=== PATIENT | male | born 1955 | race Two or more races ===

== ENCOUNTER 2017-07-19 21:54 | Emergency (ER) | payer MEDICAID, OTHER ==
[~2017-07-19] VITALS: Ht 175.3 cm; Wt 95.3 kg
--- NOTE | 2017-07-19 22:05 | NUR ---
CALLED PT NAME [id number]. NO ONE IN WAITING ROOM AT THIS TIME.
--- NOTE | 2017-07-19 22:28 | NUR ---
ROBBIE BOYD AT BEDSIDE FOR EVAL.
--- NOTE | 2017-07-19 23:01 | NUR ---
MOLD CLAMPER AT BEDSIDE FOR BLOOD DRAW.
[2017-07-19 23:12] LABS: BASOPHILS # (AUTO) 0.1 /CMM (0.0-0.2); BASOPHILS % (AUTO) 1.1 % (0.0-2.0); EOSINOPHILS # (AUTO) 1.1 /CMM (0.0-0.7); EOSINOPHILS % (AUTO) 10.5 % (0.0-6.0); HEMATOCRIT 38 % (39-51); LYMPHOCYTES # (AUTO) 3.2 /CMM (0.8-4.8); LYMPHOCYTES % (AUTO) 30.3 % (20.0-44.0); MEAN CORPUSCULAR HEMOGLOBIN 30 PG (26.0-33.0); MEAN CORPUSCULAR HGB CONC 35 g/dl (31.0-36.0); MEAN CORPUSCULAR VOLUME 86 fL (80-96); MONOCYTES # (AUTO) 0.6 /CMM (0.1-1.30); MONOCYTES % (AUTO) 5.5 % (2.0-12.0); NEUTROPHILS # (AUTO) 5.6 /CMM (1.8-8.9); NEUTROPHILS % (AUTO) 52.6 % (43.0-81.0); PLATELET COUNT (AUTO) 242 /CMM (150-450); RDW COEFFICIENT OF VARIATION 13.4 (11.5-15.0); RED BLOOD CELL COUNT(AUTO) 4.34 MIL/uL (4.5-6.0); WHITE BLOOD COUNT (AUTO) 10.7 K/uL (4.3-11.0)
[2017-07-19 23:25] LABS: CREATININE 0.9 mg/dL (0.6-1.3)
[2017-07-19 23:31] LABS: ALBUMIN 3.8 g/dL (3.4-5.0); BILIRUBIN,DIRECT 0.1 mg/dL (0.0-0.2); BILIRUBIN,TOTAL 0.3 mg/dL (0.2-1.0); TOTAL PROTEIN, SERUM 7.3 g/dL (6.4-8.2)
--- NOTE | 2017-07-19 23:43 | NUR ---
Patient discharged to home in stable condition. Written and verbal after care instructions given. Patient verbalizes understanding of instruction.
[2017-07-19 23:45] VITALS: BP 132/84
== END 2017-07-19 23:46 | disposition home or self-care (01) ==
LOC: ER 22:03
DX: E11.9 Type 2 diabetes mellitus without complications (principal); I10 Essential (primary) hypertension
CPT/HCPCS: 36415; 80048-TC; 80076-TC; 82962-TC; 85025-TC; A4606; Z7610

== ENCOUNTER 2018-11-24 12:45 | Emergency (ER) | payer OTHER ==
[~2018-11-24] VITALS: Ht 177.8 cm; Wt 103.4 kg
[~2018-11-24 12:45] MED LIST: ASPI-1152 PO; ENAL10TA PO; GLIP10TA11 PO; METF-442 PO; OMEP20CA10 PO; QUET25TA PO; SIMV40TA5 PO; SITA100T PO; TRAZ-214 PO
[2018-11-24 12:52] VITALS: BP 141/79
== END 2018-11-24 13:16 | disposition home or self-care (01) ==
LOC: ER 12:46
DX: H66.93 Otitis media, unspecified, bilateral (principal); I10 Essential (primary) hypertension; E11.9 Type 2 diabetes mellitus without complications; F17.200 Nicotine dependence, unspecified, uncomplicated; Z79.82 Long term (current) use of aspirin

== ENCOUNTER 2018-12-16 23:25 | Emergency (ER) | payer MEDICAID, OTHER ==
[~2018-12-16] VITALS: Ht 177.8 cm; Wt 90.7 kg
[2018-12-16 23:47] VITALS: BP 112/79
== END 2018-12-17 00:25 | disposition home or self-care (01) ==
LOC: ER 23:29
DX: H93.13 Tinnitus, bilateral (principal); E11.9 Type 2 diabetes mellitus without complications; I10 Essential (primary) hypertension; F17.200 Nicotine dependence, unspecified, uncomplicated; Z79.84 Long term (current) use of oral hypoglycemic drugs; Z79.82 Long term (current) use of aspirin; Z79.899 Other long term (current) drug therapy
CPT/HCPCS: Z7502

== ENCOUNTER 2019-04-30 19:23 | Emergency (ER) | payer OTHER ==
[~2019-04-30] VITALS: Ht 175.3 cm; Wt 104.3 kg
[~2019-04-30 19:23] MED LIST changes: -OMEP20CA10 PO; +OMEP20CA11 PO; +SIMV-49 PO; -SIMV40TA5 PO
[2019-04-30 19:25] VITALS: BP 141/92
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
== END 2019-04-30 22:25 | disposition home or self-care (01) ==
LOC: ER 19:32
DX: B34.9 Viral infection, unspecified (principal); I10 Essential (primary) hypertension; E78.5 Hyperlipidemia, unspecified; E11.9 Type 2 diabetes mellitus without complications; F17.200 Nicotine dependence, unspecified, uncomplicated; Z79.84 Long term (current) use of oral hypoglycemic drugs; Z79.899 Other long term (current) drug therapy
CPT/HCPCS: 86403-TC; 87070-TC

== ENCOUNTER 2019-11-28 13:22 | Emergency (ER) | payer OTHER ==
[~2019-11-28] VITALS: Ht 175.3 cm; Wt 104.3 kg
[~2019-11-28 13:22] MED LIST changes: -ASPI-1152 PO; +ASPI-1420 PO; -ENAL10TA PO; +ENAL10TA39 PO; -OMEP20CA11 PO; +OMEP20CA15 PO; -TRAZ-214 PO; +TRAZ-257 PO
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
--- NOTE | 2019-11-28 14:00 | NUR ---
wheeled patient to ct
--- NOTE | 2019-11-28 14:06 | NUR ---
patient came back from ct
[2019-11-28 14:51] VITALS: BP 158/108
--- NOTE | 2019-11-28 14:52 | NUR ---
Patient discharged to home in stable condition. Written and verbal after care instructions given. Patient verbalizes understanding of instruction.
== END 2019-11-28 14:52 | disposition home or self-care (01) ==
LOC: ER 13:29
DX: S02.31XA Fracture of orbital floor, right side, initial encounter for closed fracture (principal); I10 Essential (primary) hypertension; E78.5 Hyperlipidemia, unspecified; E11.9 Type 2 diabetes mellitus without complications; F17.200 Nicotine dependence, unspecified, uncomplicated; Z79.899 Other long term (current) drug therapy; Z79.84 Long term (current) use of oral hypoglycemic drugs; Z79.82 Long term (current) use of aspirin; Y04.0XXA Assault by unarmed brawl or fight, initial encounter; Y93.89 Activity, other specified; Y92.89 Other specified places as the place of occurrence of the external cause; Y99.8 Other external cause status
CPT/HCPCS: 70450-TC

== ENCOUNTER 2019-12-02 09:33 | Emergency (ER) | payer OTHER ==
[~2019-12-02] VITALS: Ht 175.3 cm; Wt 104.3 kg
[~2019-12-02 09:33] MED LIST changes: +ASPI-1152 PO; -ASPI-1420 PO; +ENAL10TA PO; -ENAL10TA39 PO
[2019-12-02 09:45] VITALS: BP 151/84
--- NOTE | 2019-12-02 10:16 | NUR ---
Patient discharged to home in stable condition. Written and verbal after care instructions given. Patient verbalizes understanding of instruction.
== END 2019-12-02 10:16 | disposition home or self-care (01) ==
LOC: ER 09:33
DX: B99.8 Other infectious disease (principal); H10.89 Other conjunctivitis; I10 Essential (primary) hypertension; E78.5 Hyperlipidemia, unspecified; E11.9 Type 2 diabetes mellitus without complications; Z79.899 Other long term (current) drug therapy; Z79.82 Long term (current) use of aspirin

== ENCOUNTER 2019-12-14 05:12 | Emergency (ER) | payer OTHER ==
[~2019-12-14] VITALS: Ht 175.3 cm; Wt 104.3 kg
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
--- NOTE | 2019-12-14 05:55 | NUR ---
XRAY AT BEDSIDE
--- NOTE | 2019-12-14 08:15 | NUR ---
Patient discharged to home in stable condition. Written and verbal after care instructions given. Patient verbalizes understanding of instruction.
[2019-12-14 08:17] VITALS: BP 121/81
== END 2019-12-14 08:17 | disposition home or self-care (01) ==
LOC: ER 05:13
DX: M25.531 Pain in right wrist (principal); I10 Essential (primary) hypertension; E78.5 Hyperlipidemia, unspecified; E11.9 Type 2 diabetes mellitus without complications; F17.200 Nicotine dependence, unspecified, uncomplicated; Z79.899 Other long term (current) drug therapy; Z79.82 Long term (current) use of aspirin; W19.XXXA Unspecified fall, initial encounter; Y93.89 Activity, other specified; Y92.89 Other specified places as the place of occurrence of the external cause; Y99.8 Other external cause status
CPT/HCPCS: 73110; 73130-TC

== ENCOUNTER 2020-05-18 19:31 | Emergency (ER) | payer OTHER ==
[~2020-05-18] VITALS: Ht 175.3 cm; Wt 104.3 kg
[~2020-05-18 19:31] MED LIST changes: -ASPI-1152 PO; +ASPI-1420 PO; -ENAL10TA PO; +ENAL10TA39 PO
--- NOTE | 2020-05-18 19:45 | NUR ---
PT CAME TO THE ER C/O ABD PAIN X 15 DAYS. -VOMITING +NAUSEA. PT AAOX4, VSS, RESPIRATIONS EVEN AND UNLABORED ON RA W/ NAD NOTED. PT CONNECTED TO THE PRECINCT I [employer]ICE [employer]GEANT AND POX.
--- NOTE | 2020-05-18 19:46 | NUR ---
URINE COLLECTED AND SENT TO LAB
--- NOTE | 2020-05-18 19:58 | NUR ---
PT AAOX4. AMBULATORY WITH STEADY GAIT. BIBSELF C/O GEN ABD PAIN X15 DAYS BUT TODAY BECAME WORSE. PT PLACED IN BED 9 ON MONITOR AND PULSE OX. VSS. UPON ASSESSMENT RUQ PAIN UPON PALPATION. LINE ESTABLISHED LAC 18G, BLOOD COLLECTED, AND SENT TO LAB. AT BEDSIDE FOR EVAL. AWAITING OTHER ORDERS.
[2020-05-18] MEDS ORDERED: MORPHINE SULFATE INJ 2 MG/ML DISP.SYRIN IV ONE (20:00)
[2020-05-18] MEDS ORDERED: ONDANSETRON HCL/PF 4 MG/2 ML VIAL IVP ONE (20:00)
[2020-05-18] MEDS ORDERED: KETOROLAC TROMETHAMINE INJ 30 MG/ML VIAL IV ONE (20:00)
[2020-05-18] MEDS ORDERED: MORPHINE SULFATE INJ 2 MG/ML DISP.SYRIN ONE (20:04)
[2020-05-18] MEDS ORDERED: ONDANSETRON HCL/PF 4 MG/2 ML VIAL ONE (20:04)
[2020-05-18] MEDS ORDERED: KETOROLAC TROMETHAMINE 15 MG/ML VIAL ONE (20:04)
--- NOTE | 2020-05-18 20:15 | NUR ---
US AT BEDSIDE.
[2020-05-18 20:18] LABS: CALCIUM, SERUM 9.4 mg/dL (8.5-10.1); CREATININE 0.8 mg/dL (0.6-1.3); POTASSIUM 4.1 mmol/L (3.5-5.1)
--- NOTE | 2020-05-18 20:18 | NUR ---
BROUGHT TO CT
[2020-05-18 20:20] LABS: BASOPHILS # (AUTO) 0.2 /CMM (0.0-0.2); BASOPHILS % (AUTO) 1.5 % (0.0-2.0); EOSINOPHILS % (AUTO) 9.5 % (0.0-6.0); HEMATOCRIT 44 % (39-51); HEMOGLOBIN 14.6 g/dL (13.5-17.5); LYMPHOCYTES # (AUTO) 3.2 /CMM (0.8-4.8); LYMPHOCYTES % (AUTO) 31.4 % (20.0-44.0); MEAN CORPUSCULAR HGB CONC 33 g/dl (31.0-36.0); MEAN CORPUSCULAR VOLUME 88 fL (80-96); MONOCYTES # (AUTO) 0.7 /CMM (0.1-1.30); MONOCYTES % (AUTO) 6.7 % (2.0-12.0); NEUTROPHILS # (AUTO) 5.2 /CMM (1.8-8.9); NEUTROPHILS % (AUTO) 50.9 % (43.0-81.0); PLATELET COUNT (AUTO) 265 /CMM (150-450); RED BLOOD CELL COUNT(AUTO) 4.97 MIL/uL (4.5-6.0); WHITE BLOOD COUNT (AUTO) 10.2 K/uL (4.3-11.0)
[2020-05-18 20:26] LABS: BILIRUBIN,URINE Negative (NEGATIVE); BLOOD, URINE Trace-lysed Ery/uL (NEGATIVE); COLOR,URINE Yellow (YELLOW); LEUKOCYTE ESTERASE ,URINE Negative (NEGATIVE); NITRITE, URINE Negative (NEGATIVE); PH,URINE 6.5 (5.0-8.0); PROTEIN,URINE Negative (NEGATIVE); UGLUCOSE Negative (NEGATIVE); UROBILINOGEN,URINE 0.2 EU/dL (0.2)
[2020-05-18 20:26] LABS: BILIRUBIN,DIRECT 0.1 mg/dL (0.0-0.2); BILIRUBIN,TOTAL 0.3 mg/dL (0.2-1.0)
--- NOTE | 2020-05-18 20:45 | NUR ---
SPOKE TO PT, DENIES PAIN. VSS.
[2020-05-18 20:53] LABS: BACTERIA,URINE None seen /HPF (None Seen); SQUAMOUS EPITHELIAL CELL,UR Few /HPF (None Seen); WBC,URINE 0-2 /HPF (0-3)
[2020-05-18 21:10] VITALS: BP 127/72
--- NOTE | 2020-05-18 21:10 | NUR ---
IV removed. Catheter intact and site benign. Pressure and 4x4 applied to site. No bleeding noted.
--- NOTE | 2020-05-18 21:10 | NUR ---
Patient discharged to home in stable condition. Written and verbal after care instructions given. Patient verbalizes understanding of instruction and RX. Pt ambulated with steady gait. vss. Denies pain.
== END 2020-05-18 21:11 | disposition home or self-care (01) ==
LOC: ER 19:35
DX: R10.84 Generalized abdominal pain (principal); I10 Essential (primary) hypertension; E11.9 Type 2 diabetes mellitus without complications; E78.5 Hyperlipidemia, unspecified; Z79.82 Long term (current) use of aspirin; Z79.899 Other long term (current) drug therapy
CPT/HCPCS: 36415; 74176; 76705; 80048; 80076; 81001; 82962; 83690; 85025; 96374; 96375; 99285; J1885; J2270; J2405; 81000-TC

== ENCOUNTER 2020-10-21 14:36 | Emergency (ER) | payer OTHER ==
[~2020-10-21] VITALS: Ht 175.3 cm; Wt 101.6 kg
--- NOTE | 2020-10-21 14:36 | NUR ---
PT BIB SELF C/O ABDOMINAL PAIN FOR 2 WEEKS AND GEN WEAKNESS. PT IS AAOX4, NOT IN RESPIRATORY DISTRESS, HOOKED TO DRAPERY HAND, KEPT RESTED AND COMFORTABLE. WILL CONTINUE TO MONITOR.
--- NOTE | 2020-10-21 14:53 | NUR ---
IV LINE ESTABLISHED BLOOD DRAWN AND SENT TO LAB.
--- NOTE | 2020-10-21 14:57 | NUR ---
PT SEEN AND EXAMINED BY .
[2020-10-21 15:10] LABS: BASOPHILS # (AUTO) 0.1 /CMM (0.0-0.2); BASOPHILS % (AUTO) 1.3 % (0.0-2.0); EOSINOPHILS % (AUTO) 9.9 % (0.0-6.0); HEMATOCRIT 43 % (39-51); HEMOGLOBIN 14.6 g/dL (13.5-17.5); LYMPHOCYTES # (AUTO) 2.2 /CMM (0.8-4.8); LYMPHOCYTES % (AUTO) 23.7 % (20.0-44.0); MEAN CORPUSCULAR HGB CONC 34 g/dl (31.0-36.0); MEAN CORPUSCULAR VOLUME 88 fL (80-96); MONOCYTES # (AUTO) 0.5 /CMM (0.1-1.30); MONOCYTES % (AUTO) 5.5 % (2.0-12.0); NEUTROPHILS # (AUTO) 5.5 /CMM (1.8-8.9); NEUTROPHILS % (AUTO) 59.6 % (43.0-81.0); PLATELET COUNT (AUTO) 225 /CMM (150-450); RED BLOOD CELL COUNT(AUTO) 4.88 MIL/uL (4.5-6.0); WHITE BLOOD COUNT (AUTO) 9.3 K/uL (4.3-11.0)
[2020-10-21 15:18] LABS: CALCIUM, SERUM 9.1 mg/dL (8.5-10.1); CARBON DIOXIDE 29 mmol/L (21-32); CHLORIDE 106 mmol/L (98-107); GLUCOSE 230 mg/dL (74-106); POTASSIUM 4.3 mmol/L (3.5-5.1); SODIUM SERUM 142 mmol/L (136-145); UREA NITROGEN, BLOOD 12 mg/dL (7-18)
[2020-10-21 15:23] LABS: ALANINE AMINOTRANSFERASE 24 U/L (12-78); ALBUMIN 3.9 g/dL (3.4-5.0); ALKALINE PHOSPHATASE 89 U/L (46-116); ASPARTATE AMINOTRANSFERASE 14 U/L (15-37); BILIRUBIN,DIRECT 0.1 mg/dL (0.0-0.2); BILIRUBIN,TOTAL 0.2 mg/dL (0.2-1.0); LIPASE 170 U/L (73-393); TOTAL PROTEIN, SERUM 7.6 g/dL (6.4-8.2)
--- NOTE | 2020-10-21 16:16 | NUR ---
IV removed. Catheter intact and site benign. Pressure and 4x4 applied to site. No bleeding noted. Patient discharged to home in stable condition. Written and verbal after care instructions given. Patient verbalizes understanding of instruction.
[2020-10-21 16:17] VITALS: BP 144/88
== END 2020-10-21 16:17 | disposition home or self-care (01) ==
LOC: ER 14:50
DX: R10.31 Right lower quadrant pain (principal); R42 Dizziness and giddiness; E11.9 Type 2 diabetes mellitus without complications; I10 Essential (primary) hypertension; E78.5 Hyperlipidemia, unspecified; Z79.84 Long term (current) use of oral hypoglycemic drugs; Z79.899 Other long term (current) drug therapy
CPT/HCPCS: 36415; 71045-TC; 80048-TC; 80076-TC; 83690-TC; 84484-TC; 85025-TC

== ENCOUNTER 2023-04-24 17:15 | Emergency (ER) | payer OTHER ==
[~2023-04-24] VITALS: Ht 182.9 cm; Wt 100.8 kg
[~2023-04-24 17:15] MED LIST changes: +DICY10CA37 PO; +ONDA4TAB5 PO
[2023-04-24] MEDS ORDERED: IV NS 0.9% 1,000 ML BAG IV ONE (18:00)
[2023-04-24 18:18] LABS: BASOPHILS # (AUTO) 0.1 K/uL (0.0-0.2); BASOPHILS % (AUTO) 0.9 % (0.0-2.0); EOSINOPHILS # (AUTO) 0.2 K/uL (0.0-0.7); EOSINOPHILS % (AUTO) 1.7 % (0.0-6.0); HEMATOCRIT 36 % (39-51); LYMPHOCYTES # (AUTO) 2.2 K/uL (0.8-4.8); LYMPHOCYTES % (AUTO) 17.3 % (20.0-44.0); MEAN CORPUSCULAR HEMOGLOBIN 29 PG (26.0-33.0); MEAN CORPUSCULAR HGB CONC 33 g/dl (31.0-36.0); MEAN CORPUSCULAR VOLUME 87 fL (80-96); MONOCYTES # (AUTO) 0.8 K/uL (0.1-1.30); MONOCYTES % (AUTO) 6.1 % (2.0-12.0); NEUTROPHILS # (AUTO) 9.4 K/uL (1.8-8.9); PLATELET COUNT (AUTO) 261 K/uL (150-450); RED BLOOD CELL COUNT(AUTO) 4.17 MIL/uL (4.5-6.0); RED CELL DISTRIBUTION WIDTH 14.4 % (11.5-15.0); WHITE BLOOD COUNT (AUTO) 12.8 K/uL (4.3-11.0)
[2023-04-24 19:09] LABS: CALCIUM, SERUM 8.6 mg/dL (8.5-10.1); CREATININE 0.8 mg/dL (0.6-1.3); POTASSIUM 4.1 mmol/L (3.5-5.1)
[2023-04-24 19:14] LABS: ALBUMIN 3.2 g/dL (3.4-5.0); BILIRUBIN,DIRECT 0.1 mg/dL (0.0-0.2); BILIRUBIN,TOTAL 0.2 mg/dL (0.2-1.0); TOTAL PROTEIN, SERUM 6.9 g/dL (6.4-8.2)
[2023-04-24] MEDS ORDERED: AMOX-430 PO (19:44)
[2023-04-24] MEDS ORDERED: AMOX/CLAVULANATE 875 MG TABLET ONE (19:48)
[2023-04-24 19:55] VITALS: BP 124/78; TEMP 98.1; O2SAT 99
[2023-04-24] MEDS ORDERED: AMOX/CLAVULANATE 875 MG TABLET PO ONE (20:00)
== END 2023-04-24 19:56 | disposition home or self-care (01) ==
LOC: ER 17:18
DX: K52.9 Noninfective gastroenteritis and colitis, unspecified (principal); E11.9 Type 2 diabetes mellitus without complications; F17.200 Nicotine dependence, unspecified, uncomplicated; Z79.82 Long term (current) use of aspirin; Z79.899 Other long term (current) drug therapy
CPT/HCPCS: 99284; 74176; 96360; 85025; 80048; 83690; 80076; 36415; J7030

== ENCOUNTER 2023-07-28 12:55 | Emergency (ER) | payer MEDICARE, OTHER ==
[~2023-07-28] VITALS: Ht 180.3 cm; Wt 99.8 kg
[~2023-07-28 12:55] MED LIST changes: +AMOX-430 PO
[2023-07-28] MEDS ORDERED: MECLIZINE HCL 12.5 MG TABLET PO ONE (14:00)
[2023-07-28] MEDS ORDERED: IV NS 0.9% 1,000 ML BAG IV ONE (14:00)
[2023-07-28] MEDS ORDERED: MECLIZINE HCL 25 MG TABLET ONE (14:05)
[2023-07-28 14:35] LABS: BASOPHILS # (AUTO) 0.1 K/uL (0.0-0.2); BASOPHILS % (AUTO) 0.9 % (0.0-2.0); EOSINOPHILS # (AUTO) 0.8 K/uL (0.0-0.7); EOSINOPHILS % (AUTO) 10.2 % (0.0-6.0); HEMATOCRIT 39 % (39-51); HEMOGLOBIN 13.4 g/dL (13.5-17.5); LYMPHOCYTES # (AUTO) 1.5 K/uL (0.8-4.8); LYMPHOCYTES % (AUTO) 19.7 % (20.0-44.0); MEAN CORPUSCULAR HEMOGLOBIN 30 PG (26.0-33.0); MEAN CORPUSCULAR HGB CONC 34 g/dl (31.0-36.0); MEAN CORPUSCULAR VOLUME 89 fL (80-96); MONOCYTES # (AUTO) 0.4 K/uL (0.1-1.30); MONOCYTES % (AUTO) 4.7 % (2.0-12.0); NEUTROPHILS # (AUTO) 4.9 K/uL (1.8-8.9); NEUTROPHILS % (AUTO) 64.5 % (43.0-81.0); PLATELET COUNT (AUTO) 206 K/uL (150-450); RED BLOOD CELL COUNT(AUTO) 4.43 MIL/uL (4.5-6.0); RED CELL DISTRIBUTION WIDTH 15.2 % (11.5-15.0); WHITE BLOOD COUNT (AUTO) 7.6 K/uL (4.3-11.0)
[2023-07-28 15:33] LABS: CALCIUM, SERUM 8.8 mg/dL (8.5-10.1); POTASSIUM 4.3 mmol/L (3.5-5.1)
[2023-07-28] MEDS ORDERED: MECL-159 PO (15:33)
[2023-07-28 15:39] LABS: ALBUMIN 3.8 g/dL (3.4-5.0); BILIRUBIN,DIRECT 0.1 mg/dL (0.0-0.2); BILIRUBIN,TOTAL 0.3 mg/dL (0.2-1.0); TOTAL PROTEIN, SERUM 7.5 g/dL (6.4-8.2)
[2023-07-28 16:42] VITALS: BP 128/78; TEMP 98; O2SAT 99
== END 2023-07-28 16:00 | disposition home or self-care (01) ==
LOC: ER 13:05
DX: R42 Dizziness and giddiness (principal); E11.65 Type 2 diabetes mellitus with hyperglycemia; H92.03 Otalgia, bilateral; I10 Essential (primary) hypertension; E78.5 Hyperlipidemia, unspecified; Z79.84 Long term (current) use of oral hypoglycemic drugs; Z79.899 Other long term (current) drug therapy
CPT/HCPCS: 99285; 96360; 70450; 71045; 93005; 85025; 80048; 80076; 36415; 82962; J8597; J7030

== ENCOUNTER 2023-08-21 18:48 | Emergency (ER) | payer MEDICARE, OTHER ==
[~2023-08-21] VITALS: Ht 170.2 cm; Wt 98.4 kg
[~2023-08-21 18:48] MED LIST changes: +MECL-159 PO
[2023-08-21 18:58] VITALS: TEMP 98.4
[2023-08-21] MEDS: IV NS 0.9% 1,000 ML BAG IV ONE (19:58)
[2023-08-21 20:10] LABS: BASOPHILS # (AUTO) 0.1 K/uL (0.0-0.2); BASOPHILS % (AUTO) 1.3 % (0.0-2.0); EOSINOPHILS # (AUTO) 0.2 K/uL (0.0-0.7); EOSINOPHILS % (AUTO) 2.7 % (0.0-6.0); HEMATOCRIT 39 % (39-51); HEMOGLOBIN 13.2 g/dL (13.5-17.5); LYMPHOCYTES # (AUTO) 2.4 K/uL (0.8-4.8); LYMPHOCYTES % (AUTO) 26.3 % (20.0-44.0); MEAN CORPUSCULAR HEMOGLOBIN 30 PG (26.0-33.0); MEAN CORPUSCULAR HGB CONC 34 g/dl (31.0-36.0); MEAN CORPUSCULAR VOLUME 89 fL (80-96); MONOCYTES # (AUTO) 0.5 K/uL (0.1-1.30); MONOCYTES % (AUTO) 5.7 % (2.0-12.0); NEUTROPHILS # (AUTO) 5.9 K/uL (1.8-8.9); PLATELET COUNT (AUTO) 219 K/uL (150-450); RED BLOOD CELL COUNT(AUTO) 4.37 MIL/uL (4.5-6.0); RED CELL DISTRIBUTION WIDTH 13.9 % (11.5-15.0); WHITE BLOOD COUNT (AUTO) 9.2 K/uL (4.3-11.0)
[2023-08-21 20:19] LABS: CALCIUM, SERUM 9.1 mg/dL (8.5-10.1); CREATININE 0.8 mg/dL (0.6-1.3); POTASSIUM 3.9 mmol/L (3.5-5.1)
[2023-08-21] MEDS ORDERED: MECLIZINE HCL 25 MG TABLET PO ONE (20:30)
[2023-08-21] MEDS ORDERED: MECL-159 PO (21:08)
[2023-08-21 21:18] VITALS: BP 135/70; O2SAT 99
== END 2023-08-21 21:18 | disposition home or self-care (01) ==
LOC: ER 18:50
DX: R42 Dizziness and giddiness (principal); I10 Essential (primary) hypertension; E78.5 Hyperlipidemia, unspecified; E11.9 Type 2 diabetes mellitus without complications; F17.200 Nicotine dependence, unspecified, uncomplicated; Z79.82 Long term (current) use of aspirin; Z79.899 Other long term (current) drug therapy
CPT/HCPCS: 99284; 96360; 93005; 85025; 80048; 36415; J7030; A4223

== ENCOUNTER 2024-12-13 15:15 | Emergency (ER) | payer MEDICARE, OTHER ==
[~2024-12-13] VITALS: Ht 175.3 cm; Wt 104.3 kg
[2024-12-13 15:32] VITALS: BP 125/84; TEMP 98.1
[2024-12-13] MEDS ORDERED: AZIT500T4 PO (15:53)
[2024-12-13 16:01] VITALS: O2SAT 99
== END 2024-12-13 16:01 | disposition home or self-care (01) ==
LOC: ER 15:31
DX: J32.9 Chronic sinusitis, unspecified (principal); E11.9 Type 2 diabetes mellitus without complications; E78.5 Hyperlipidemia, unspecified; F17.200 Nicotine dependence, unspecified, uncomplicated; I10 Essential (primary) hypertension; Z79.82 Long term (current) use of aspirin; Z79.84 Long term (current) use of oral hypoglycemic drugs; Z79.899 Other long term (current) drug therapy

== ENCOUNTER 2025-04-09 14:49 | Emergency (ER) | payer MEDICARE, OTHER ==
[~2025-04-09] VITALS: Ht 182.9 cm; Wt 95.7 kg
[~2025-04-09 14:49] MED LIST changes: +AZIT500T4 PO
[2025-04-09] MEDS ORDERED: IBUP-1955 PO (16:43)
[2025-04-09] MEDS ORDERED: LIDO30AD10 TP (16:43)
[2025-04-09] MEDS ORDERED: CYCL5TAB PO (16:43)
[2025-04-09] MEDS: LIDOCAINE 5% (PATCH) 1 EA PATCH TP STA (17:26)
[2025-04-09] MEDS: KETOROLAC TROMETHAMINE 15 MG/ML VIAL IM ONE (17:30)
[2025-04-09] MEDS: HYDROCODONE/APAP 5/325MG TABLET PO ONE (17:30)
[2025-04-09] MEDS ORDERED: HYDR-4303 PO (17:32)
[2025-04-09] MEDS ORDERED: HYDROCODONE/APAP 5/325MG TABLET ONE (17:34)
[2025-04-09] MEDS ORDERED: KETOROLAC TROMETHAMINE 15 MG/ML VIAL ONE (17:34)
[2025-04-09] MEDS ORDERED: LIDOCAINE 5% (PATCH) 1 EA PATCH TP ONE (17:34)
[2025-04-09 18:03] VITALS: BP 141/74; TEMP 98.2; O2SAT 98
== END 2025-04-09 18:05 | disposition home or self-care (01) ==
LOC: ER 14:53
DX: R07.89 Other chest pain (principal); S22.32XA Fracture of one rib, left side, initial encounter for closed fracture; E11.9 Type 2 diabetes mellitus without complications; E78.5 Hyperlipidemia, unspecified; F17.200 Nicotine dependence, unspecified, uncomplicated; I11.9 Hypertensive heart disease without heart failure; Z79.82 Long term (current) use of aspirin; Z79.84 Long term (current) use of oral hypoglycemic drugs; Z79.899 Other long term (current) drug therapy; W18.2XXA Fall in (into) shower or empty bathtub, initial encounter; Y93.E1 Activity, personal bathing and showering; Y92.091 Bathroom in other non-institutional residence as the place of occurrence of the external cause; Y99.8 Other external cause status
CPT/HCPCS: 99283; 96374; 71100; J1885

== ENCOUNTER 2025-04-13 15:49 | Emergency (ER) | payer MEDICARE, OTHER ==
[~2025-04-13] VITALS: Ht 175.3 cm; Wt 95.7 kg
[~2025-04-13 15:49] MED LIST changes: +CYCL5TAB PO; +HYDR-4303 PO; +IBUP-1955 PO; +LIDO30AD10 TP
[2025-04-13 15:52] VITALS: BP 145/88; TEMP 98.3
[2025-04-13 16:15] VITALS: O2SAT 99
== END 2025-04-13 16:16 | disposition home or self-care (01) ==
LOC: ER 15:51
DX: S22.32XA Fracture of one rib, left side, initial encounter for closed fracture (principal); E11.9 Type 2 diabetes mellitus without complications; E78.5 Hyperlipidemia, unspecified; F17.200 Nicotine dependence, unspecified, uncomplicated; I10 Essential (primary) hypertension; Z79.82 Long term (current) use of aspirin; Z79.84 Long term (current) use of oral hypoglycemic drugs; Z79.899 Other long term (current) drug therapy; W01.0XXA Fall on same level from slipping, tripping and stumbling without subsequent striking against object, initial encounter; Y93.89 Activity, other specified; Y92.89 Other specified places as the place of occurrence of the external cause; Y99.8 Other external cause status